=== PATIENT | male | born 1950 | race African-American/Black ===

== ENCOUNTER 2017-10-09 11:04 | Emergency (ER) | payer MEDICARE, MEDICAID ==
[~2017-10-09] VITALS: Ht 180.3 cm; Wt 110.0 kg
[2017-10-09] MEDS ORDERED: ACETAMINOPHEN 500MG TABLET PO ONE (12:30)
[2017-10-09 14:45] VITALS: BP 126/92
== END 2017-10-09 14:50 | disposition home or self-care (01) ==
LOC: ER 11:13
DX: M25.561 Pain in right knee (principal); I10 Essential (primary) hypertension; E11.9 Type 2 diabetes mellitus without complications; G40.909 Epilepsy, unspecified, not intractable, without status epilepticus; W01.0XXA Fall on same level from slipping, tripping and stumbling without subsequent striking against object, initial encounter; Y93.89 Activity, other specified; Y92.89 Other specified places as the place of occurrence of the external cause
CPT/HCPCS: 73562; 99284